=== PATIENT | female | born 1980 | race Caucasian/White ===

== ENCOUNTER 2018-08-16 10:24 | Emergency (ER) | payer MEDICAID ==
[~2018-08-16] VITALS: Ht 167.6 cm; Wt 59.1 kg
[2018-08-16 10:27] VITALS: BP 108/85; Ht 167.6 cm; Wt 59.1 kg
[2018-08-16] MEDS ORDERED: GEODON60 MG PO (10:29)
[2018-08-16] MEDS ORDERED: DEPAKOTE125 MG PO (10:29)
--- NOTE | 2018-08-16 10:46 | NUR ---
DR. LANDIN NOTIFIED AND REVIEWED PT'S BEHAVIOR AND ASSESSMENT RESULTS. PT IS A LOW RISK PER DR. LANDIN. DR. LANDIN STATED TO GIVE RESOURCES TO PT AT TIME OF DISCHARGE. NO FIRTHER ORDERS AT THIS TIME. RSOURCES REVIEWED WITH PT AND SHE VERBALIZED UNDERSTANDING.
[2018-08-16 12:18] LABS: BASOPHILS 0.2 % (0-2); EOSINOPHILS 0.9 % (0-7); HEMOGLOBIN 10.7 g/dL (12-16); IMMATURE GRANULOCYTES 0.1 % (0-5); LYMPHOCYTES 13.8 % (15-50); MCHC 32.4 g/dL (31.0-37.0); MCV 80.3 fL (80.0-100.0); PLATELET COUNT 511 10x3/uL (130-400); RBC 4.11 10x6/uL (4.00-5.40); RDW 19.7 % (11.5-14.5); WBC 9.2 10x3/uL (4.8-10.8)
[2018-08-16 12:21] LABS: ALBUMIN 4.3 g/dL (3.4-5.0); ALKALINE PHOSPHATASE 61 U/L (46-116); ALT (SGPT) 23 U/L (10-68); BILIRUBIN - TOTAL 0.91 mg/dL (0.2-1.3); CALC OSMOLALITY 283 mosm/kg (275-300); CALCIUM 9.5 mg/dL (8.5-10.1); CARBON DIOXIDE 28.5 mmol/L (21.0-32.0); CHLORIDE - SERUM 104 mmol/L (98-107); CREATININE - SERUM 0.8 mg/dL (0.6-1.3); GLUCOSE 93 mg/dL (74-106); MAGNESIUM - SERUM 1.5 mg/dL (1.8-2.4); PROTEIN - SERUM 7.8 g/dL (6.4-8.2); SODIUM 143 mmol/L (136-145); UREA NITROGEN 11 mg/dL (7-18); eGFR NON AFRICAN AMERICAN 85 mL/min (90-120)
[2018-08-16 12:37] LABS: UDS - AMPHET NEGATIVE QUAL (NEGATIVE); UDS - BARB NEGATIVE QUAL (NEGATIVE); UDS - BENZO NEGATIVE QUAL (NEGATIVE); UDS - COCAINE NEGATIVE QUAL (NEGATIVE); UDS - OPIATE NEGATIVE QUAL (NEGATIVE); UDS - PCP NEGATIVE QUAL (NEGATIVE); UDS - THC POSITIVE QUAL (NEGATIVE)
[2018-08-16 12:38] LABS: APPEARANCE CLEAR (CLEAR); COLOR YELLOW (YELLOW); GLUCOSE NEGATIVE (NEGATIVE); KETONE MODERATE mg/dL (NEGATIVE); NITRITE NEGATIVE (NEGATIVE); PROTEIN NEGATIVE (NEGATIVE); UROBILINOGEN NORMAL (NORMAL)
[2018-08-16 12:39] LABS: BACTERIA FEW /hpf (NONE SEEN); BILIRUBIN NEGATIVE (NEGATIVE); EPITHELIAL CELLS OCC /hpf (0-5); WHITE CELLS - URINE OCC /hpf (0-5)
== END 2018-08-16 17:58 ==
LOC: D.ER 10:24
PROVIDERS: Family Medicine
DX: F41.9 Anxiety disorder, unspecified (principal); F22 Delusional disorders